=== PATIENT | male | born 1970 ===

== ENCOUNTER 2022-02-08 05:39 | Inpatient (IN) ==
[2022-02-02 12:35] LABS: Basophils % 0.3 % (0.0-0.8); Eosinophils # 0.1 10*3/uL (0.0-0.87); Eosinophils % 2.3 % (0.00-10.9); Hemoglobin 14.9 GM/DL (14.0-18.0); Immature Granulocytes % 0.3 %; Immature Granulocytes Absolute 0.02 #; Lymphocytes # 1.3 10*3/uL (1.4-4.0); Lymphocytes % 22.4 % (21.2-54.2); Mean Corpuscular HGB Conc 33.1 GM/DL (32-36); Mean Corpuscular Volume 86.4 FL (87-102); Mean Platelet Volume 11.4 FL (9.6-12.0); Monocytes # 0.4 10*3/uL (0.11-0.8); Monocytes % 6.7 % (1.7-12.7); Platelet Count 94 T/CUMM (130-400); Red Blood Count 5.21 MC/CUMM (3.8-5.5); Red Cell Distribution Width 13.5 % (9.3-17.3)
[2022-02-02 12:45] LABS: Calcium 9.2 MG/DL (8.5-10.1); Osmolality,Calculated 278.5 MOS/KG (273-304); Potassium 4.4 MMOL/L (3.5-5.1)
[2022-02-02 12:46] LABS: Urine Appearance Cloudy (Clear); Urine Color Yellow (Yellow); Urine pH 5.5 (4.5-8.0)
[2022-02-02 12:47] LABS: Bilirubin,Urine Negative (Negative); Blood, Urine Large mg/dL (Negative); Glucose,Urine (UA) Negative (Negative); Ketones,Urine Negative (Negative); Nitrite,Urine Negative (Negative); Protein,Urine 100 mg/dL (Negative); Urine Specific Gravity >= 1.030 (1.001-1.035); Urine Urobilinogen 0.2 eU/dL (<2.0)
[2022-02-02 12:49] LABS: Amorphous Crystals,Urine Occasional /HPF (Few); Calcium Oxalate Crystals,Urine Occasional /HPF (Few); RBC,Urine 62 /HPF (0-4)
[2022-02-02 12:50] LABS: PT Patient Result 10.6 SECS (10.1-12.1)
[2022-02-02 14:01] LABS: Anisocytosis Slight; Microcytosis Slight; Platelet Estimate Decreased
[2022-02-08] MEDS ORDERED: fentaNYL 100 MCG/2 ML VIAL ONE (06:00)
[2022-02-08] MEDS ORDERED: MIDAZOLAM 2 MG/2 ML VIAL ONE (06:00)
[2022-02-08] MEDS ORDERED: LIDOCAINE 2% 5 ML VIAL ONE (06:01)
[2022-02-08] MEDS ORDERED: propofoL 200 MG/20 ML VIAL IV ONE (06:01)
[2022-02-08] MEDS ORDERED: ROCURONIUM 50 MG/5 ML VIAL IV ONE (06:01)
[2022-02-08] MEDS ORDERED: ONDANSETRON 4 MG/2 ML VIAL ONE (06:01)
[2022-02-08] MEDS: LACTATED RINGERS 1,000 ML IV SCH (06:05)
[2022-02-08] MEDS ORDERED: ALVIMOPAN 12 MG CAPSULE PO ONE (06:30)
[2022-02-08] MEDS ORDERED: cefTRIAXone 1,000 MG VIAL ONE (06:34)
[2022-02-08] MEDS ORDERED: ePHEDrine 50 MG/ML VIAL ONE (07:04)
[2022-02-08] MEDS ORDERED: PHENYLEPHRINE 1 MG/10 ML SYRINGE IV ONE ×3 (07:43→09:21)
[2022-02-08] MEDS ORDERED: LACTATED RINGERS 1,000 ML IV ONE (07:43)
[2022-02-08] MEDS ORDERED: TOBRAMYCIN 80 MG/2 ML VIAL ONE (07:53)
[2022-02-08] MEDS ORDERED: SODIUM CHLORIDE 0.9% 250 ML IV ONE (07:57)
[2022-02-08] MEDS ORDERED: GLYCOPYRROLATE 0.4 MG/2 ML VIAL ONE (09:14)
[2022-02-08] MEDS ORDERED: NEOSTIGMINE 10 MG/10 ML VIAL ONE (09:14)
[2022-02-08] MEDS ORDERED: ALBUMIN 5% 12.5 GM/250 ML VIAL IV ONE (09:26)
[2022-02-08] MEDS ORDERED: SEVOFLURANE 1 UNIT/15 MINUTE INH ONE (09:35)
[2022-02-08] MEDS ORDERED: ONDANSETRON 4 MG/2 ML VIAL IV PRN ×2 (09:45→10:07)
[2022-02-08] MEDS ORDERED: HYDROmorphone 1 MG/1 ML SYRINGE IV PRN ×2 (09:49→10:07)
[2022-02-08] MEDS ORDERED: diphenhydrAMINE 50 MG/1 ML VIAL IV PRN (10:07)
[2022-02-08] MEDS ORDERED: PROMETHAZINE INJ 25 MG in SODIUM CHLORIDE 0.9% 50 ML IV PRN (10:07)
[2022-02-08] MEDS ORDERED: MEPERIDINE 25 MG/1 ML VIAL IV PRN (10:07)
[2022-02-08] MEDS ORDERED: PROMETHAZINE 25 MG/1 ML VIAL ONE (10:11)
[2022-02-08] MEDS ORDERED: MEPERIDINE 25 MG/1 ML VIAL ONE (10:11)
[2022-02-08 10:23] LABS: Hematocrit 34.4 VOL% (42.0-52.0); Hemoglobin 11.2 GM/DL (14.0-18.0)
[2022-02-08] MEDS: SODIUM CHLORIDE 0.45% 1,000 ML IV SCH ×2 (10:24→20:42)
[2022-02-08 10:44] LABS: Mucus,Urine Few /LPF (Occasional); RBC,Urine 9137 /HPF (0-4)
[2022-02-08 10:45] LABS: Bilirubin,Urine Moderate mg/dL (Negative); Blood, Urine Large mg/dL (Negative); Glucose,Urine (UA) 100 mg/dL (Negative); Ketones,Urine Trace mg/dL (Negative); Nitrite,Urine Positive (Negative); Protein,Urine >=300 mg/dL (Negative); Urine Appearance Cloudy (Clear); Urine Color Amber (Yellow); Urine Specific Gravity 1.025 (1.001-1.035)
[2022-02-08] MEDS: ALVIMOPAN 12 MG CAPSULE PO SCH (20:40)
[2022-02-09] MEDS: oxyCODONE/ACETAMINOPHEN 5-325 MG TABLET PO PRN ×3 (00:19→21:39)
[2022-02-09 05:18] LABS: Basophils % 0.3 % (0.0-0.8); Eosinophils # 0.1 10*3/uL (0.0-0.87); Eosinophils % 1.1 % (0.00-10.9); Hematocrit 32.4 VOL% (42.0-52.0); Hemoglobin 10.4 GM/DL (14.0-18.0); Immature Granulocytes % 0.4 %; Immature Granulocytes Absolute 0.03 #; Lymphocytes % 13.9 % (21.2-54.2); Mean Corpuscular HGB Conc 32.1 GM/DL (32-36); Mean Platelet Volume 10.8 FL (9.6-12.0); Monocytes # 0.6 10*3/uL (0.11-0.8); Neutrophils % 75.3 % (38.7-73.9); Platelet Count 114 T/CUMM (130-400); Red Blood Count 3.64 MC/CUMM (3.8-5.5); Red Cell Distribution Width 13.6 % (9.3-17.3)
[2022-02-09] MEDS: SODIUM CHLORIDE 0.45% 1,000 ML IV SCH ×2 (07:20→16:03)
[2022-02-09] MEDS: LACTATED RINGERS 1,000 ML IV SCH (07:21)
[2022-02-09] MEDS: TAMSULOSIN 0.4 MG CAPSULE PO SCH (08:23)
[2022-02-09] MEDS: ALVIMOPAN 12 MG CAPSULE PO SCH ×2 (08:24→21:39)
[2022-02-09 08:27] LABS: Calcium 8.3 MG/DL (8.5-10.1); Osmolality,Calculated 280.3 MOS/KG (273-304); Potassium 4.3 MMOL/L (3.5-5.1)
[2022-02-10] MEDS: oxyCODONE/ACETAMINOPHEN 5-325 MG TABLET PO PRN (03:17)
[2022-02-10] MEDS: LACTATED RINGERS 1,000 ML IV SCH (05:40)
[2022-02-10 05:58] LABS: Basophils % 0.3 % (0.0-0.8); Eosinophils # 0.2 10*3/uL (0.0-0.87); Eosinophils % 2.5 % (0.00-10.9); Hematocrit 32.2 VOL% (42.0-52.0); Hemoglobin 10.7 GM/DL (14.0-18.0); Immature Granulocytes % 0.2 %; Immature Granulocytes Absolute 0.01 #; Lymphocytes % 16.7 % (21.2-54.2); Mean Corpuscular HGB Conc 33.2 GM/DL (32-36); Mean Corpuscular Volume 87.5 FL (87-102); Monocytes # 0.5 10*3/uL (0.11-0.8); Monocytes % 8.7 % (1.7-12.7); Neutrophils % 71.6 % (38.7-73.9); Platelet Count 133 T/CUMM (130-400); Red Blood Count 3.68 MC/CUMM (3.8-5.5); Red Cell Distribution Width 13.1 % (9.3-17.3)
[2022-02-10 06:43] LABS: Platelet Estimate Decreased
[2022-02-10] MEDS: TAMSULOSIN 0.4 MG CAPSULE PO SCH (09:01)
[2022-02-10] MEDS: ALVIMOPAN 12 MG CAPSULE PO SCH (09:01)
[2022-02-10 15:17] VITALS: BP 107/73
== END 2022-02-10 15:57 | disposition home or self-care (01) | DRG 660 ==
LOC: N.SDSINP 05:39 → N.ADMINP 11:34 → N.3E 11:34
PROVIDERS: ADMIT Urology; ATTEND Urology